=== PATIENT | female | born 1970 | race Caucasian/White ===

== ENCOUNTER → 2021-10-04 | Day surgery (SDC) | payer OTHER ==
[~2021-10-04] VITALS: Ht 157.5 cm; Wt 54.4 kg
[~2021-10-04] MED LIST: LEVOXYL75 MCG PO; LIOTHYRONINE SO5 MCG PO; PRILOSEC20 MG PO
[2021-10-04 10:35] LABS: HGB 13.5 g/dl (12.5-16.0); MCH 31.3 pg (25.0-31.0); MCHC 33.8 g/dL (32.0-36.0); MCV 92.6 fL (78.0-100.0); MPV 8.9 fL (6.0-9.5); RBC 4.32 M/uL (4.20-5.40); RDW 12.9 % (11.5-14.0); WBC 4.7 K/uL (4.0-10.5)
[2021-10-04 11:18] LABS: ALBUMIN 4.3 g/dL (3.4-5.0); BILIRUBIN - TOTAL 1.2 mg/dL (0.2-1.0); BUN/CREAT RATIO (CALC) 19.4 RATIO; CREATININE 0.72 mg/dL (0.51-0.95); GLOBULIN (CALCULATION) 3.3 g/dL; TOTAL PROTEIN 7.6 g/dL (6.4-8.2)
== END | disposition home or self-care (01) ==
LOC: FAS 09:54
PROVIDERS: Orthopaedic Surgery
DX: S56.511A Strain of other extensor muscle, fascia and tendon at forearm level, right arm, initial encounter (principal); M77.11 Lateral epicondylitis, right elbow; G58.8 Other specified mononeuropathies
CPT/HCPCS: 36415; 80053; J0690; J2250; J2405; J2704; J3010; J7120